=== PATIENT | male | born 1960 | race Caucasian/White ===

== ENCOUNTER 2022-06-06 16:18 | HOS | payer OTHER, SELFPAY ==
[2022-06-06 16:00] VITALS: BP 101/71; PULSE 118; RESP 22; TEMP 37.4; O2SAT 95
--- NOTE | 2022-06-06 16:06 | ADMGEN ---
This patient, Hitesh Warren, was admitted to 3 [facility] Surg Room 318-01. Patient/family oriented to hospital policies and general routines including ID bracelet, bed and alarms, visiting hours, pain management, procedures, bathroom and other care routines, personal items, smoking policy, room service/diet, and visiting hours. Information on how to activate the Rapid Response Team has been discussed. Patient/Family are encouraged to report perceived risks to care and to ask questions if they do not understand what they are told or what they should do.
[2022-06-06 16:12] VITALS: O2SAT 95
--- NOTE | 2022-06-06 16:20 | PM.IMHP ---
H&P: HPI History of Present Illness Date/Time: 06/06/22 16:20 Chief Complaint: Uncontrolled pain Narrative: This unfortunate 61-year-old gentleman was admitted to hospice due to chronic systolic congestive Heart failure in October of 2021. In the last month he has had falls decreased appetite and marked weight loss. He has developed nonhealing wounds of his hands both amputation stumps of lower extremities and presacral area. Over the last several days is been eating and drinking very little. He had increased difficulty swallowing oral medications. He has become increasingly confused restless and agitated. He complains of pain and moans almost constantly. During the 24 hours prior to admission he received a total of 1000 mg oral morphine. He is bed-bound and incontinent. Review of Systems Review of Systems: ROS unobtainable: Yes unobtainable due to medical condition PMFSH Past Medical History Medical History (Updated 06/06/22 @ 16:59 by Endy Velarde MD) CAD (coronary artery disease) of artery bypass graft Congestive heart failure COPD (chronic obstructive pulmonary disease) Essential hypertension Peripheral arterial occlusive disease Type 2 diabetes mellitus with vascular disease Surgical History Surgical History (Updated 06/06/22 @ 16:51 by Endy Velarde MD) Hx of CABG Family History Family History (Updated 06/06/22 @ 16:52 by Endy Velarde MD) Father No problems noted. Mother No problems noted. Social History Social History (Updated 06/06/22 @ 16:53 by Endy Velarde MD) Social History: Resides in his own home. Smoker. Disabled. Smoking status: Current every day smoker Alcohol intake: unknown Substance use: unknown Occupation/Education: retired [employer] Home Medications and Allergies Allergies Allergy/AdvReac Type Severity Reaction Status Date / Time citalopram [From Celexa] Allergy Unknown Verified 06/06/22 16:39 erythromycin base Allergy Unknown Verified 06/06/22 16:39 paroxetine [From Paxil] Allergy Unknown Verified 06/06/22 16:39 Vital Signs Vital Signs - 24 hr 06/06/22 16:12 Pulse Oximetry 95 Oxygen Delivery Nasal Cannula Oxygen Flow Rate 2 Exam Narrative: Cachectic elderly gentleman who appears much older than stated age, moaning intermittently. 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 for anxiety and prochlorperazine 10 mg IV q.6 hours p.r.n. for nausea (2) Congestive heart failure: Code(s): I50.9 - Heart failure, unspecified Status: Acute (3) COPD (chronic obstructive pulmonary disease): Code(s): J44.9 - Chronic obstructive pulmonary disease, unspecified Status: Acute (4) CAD (coronary artery disease) of artery bypass graft: Code(s): I25.810 - Atherosclerosis of coronary artery bypass graft(s) without angina pectoris Status: Acute (5) Hx of CABG: Code(s): Z95.1 - Presence of aortocoronary bypass graft Status: Acute (6) Essential hypertension: Code(s): I10 - Essent
[2022-06-06 17:25] VITALS: RESP 16
[2022-06-06] MEDS: HYDROmorphone HCL/PF (*CRX) 50 MG in SODIUM CHLORIDE 0.9% IV 95 ML IV CONT (17:25)
[2022-06-06] MEDS: NICOTINE (*PBKC) 14 MG PATCH 1 PATCH TRANSDERM (17:26)
[2022-06-06] MEDS: diazePAM INJ (*CRX) 10 MG/2 ML SYRINGE 5 MG IV PUSH (17:45)
[2022-06-06 20:00] VITALS: BP 123/79; PULSE 120; RESP 16; TEMP 36.7; O2SAT 97
[2022-06-07 00:30] VITALS: PULSE 135; O2SAT 100
[2022-06-07] MEDS: diazePAM INJ (*CRX) 10 MG/2 ML SYRINGE 5 MG IV PUSH ×3 (00:35→12:12)
--- NOTE | 2022-06-07 07:33 | PCWOUND ---
WOCN NOTE Received notice patient has wounds. no wound care assessment needed as patient is under hospice care
[2022-06-07 08:00] VITALS: BP 119/79; PULSE 34; RESP 12; TEMP 36.2; O2SAT 98
[2022-06-07 08:35] VITALS: O2SAT 94
[2022-06-07] MEDS: NICOTINE (*PBKC) 14 MG PATCH 1 PATCH TRANSDERM (09:35)
[2022-06-07] MEDS: PROCHLORPERAZINE EDISYLATE 10 MG/2 ML VIAL IV PUSH (11:59)
[2022-06-07 13:40] VITALS: RESP 16
[2022-06-07] MEDS: HYDROmorphone HCL/PF (*CRX) 50 MG in SODIUM CHLORIDE 0.9% IV 95 ML 6 MG IV CONT ×2 (13:40→19:49)
[2022-06-07] MEDS: KETOROLAC 30 MG/ML VIAL (*BKC) IV PUSH (14:34)
[2022-06-07] MEDS: diazePAM INJ (*CRX) 10 MG/2 ML SYRINGE (15:24)
--- NOTE | 2022-06-07 16:19 | PC.NURSE ---
stephanie nurse came to desk and asked if pt can have the prn dose of 3ml of dilaudid. this nurse checked and pt can, will go assess pt.
--- NOTE | 2022-06-07 16:20 | PM.IMPN ---
Progress Note: A&P Assessment and Plan (1) Palliative care by specialist: Code(s): Z51.5 - Encounter for palliative care Status: Acute Assessment and Plan: Meets criteria for inpatient hospice due to requiring continuous IV hydromorphone for analgesia due to pain related to multiple nonhealing wounds 06/06: Continue hydromorphone at 1.5 milligrams/hour and 3 mg every 2 hours as needed with diazepam 5 mg IV q.6 hours p.r.n. for anxiety and prochlorperazine 10 mg IV q.6 hours p.r.n. for nausea 06/07. Increased hydromorphone from 3-5 milligrams/hour. Schedule diazepam 10 mg IV every 6 hours and 10 mg IV every 3 hours p.r.n.. Continue scheduled Toradol 30 mg IV q.6 hours. (2) Congestive heart failure: Code(s): I50.9 - Heart failure, unspecified Status: Acute (3) COPD (chronic obstructive pulmonary disease): Code(s): J44.9 - Chronic obstructive pulmonary disease, unspecified Status: Acute (4) CAD (coronary artery disease) of artery bypass graft: Code(s): I25.810 - Atherosclerosis of coronary artery bypass graft(s) without angina pectoris Status: Acute (5) Hx of CABG: Code(s): Z95.1 - Presence of aortocoronary bypass graft Status: Acute (6) Essential hypertension: Code(s): I10 - Essential (primary) hypertension Status: Acute (7) Type 2 diabetes mellitus with vascular disease: Code(s): E11.59 - Type 2 diabetes mellitus with other circulatory complications Status: Acute (8) Peripheral arterial occlusive disease: Code(s): I77.9 - Disorder of arteries and arterioles, unspecified Status: Acute Subjective Date/time seen: 06/07/22 16:20 Pain earlier today, improved after increase in hydromorphone drip. Restlessness this afternoon improved after increase in diazepam. However this evening he is more restless with intermittent crying out sometimes saying ow . Review of Systems Review of Systems: ROS unobtainable: Yes unobtainable due to medical condition Exam Narrative: Cachectic elderly gentleman who appears much older than stated age, moaning intermittently. 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 Neurological cranial nerves symmetric to visual inspection Objective Data Vital Signs Vital Signs: Vital Signs - 24 hr 06/06/22 17:25 06/06/22 20:00 06/06/22 20:00 Temperature 98.0 F Pulse Rate 120 H Respiratory Rate 16 16 Blood Pressure 123/79 Pulse Oximetry 97 97 Oxygen Delivery Nasal Cannula Oxygen Flow Rate 2 06/07/22 00:30 06/07/22 08:00 06/07/22 08:35 Temperature 97.1 F L Pulse Rate 135 H 34 L Respiratory Rate 12 Blood Pressure 119/79 Pulse Oximetry 100 98 94 Oxygen Delivery Nasal Cannula Oxygen Flow Rate 2 06/07/22 13:40 Temperature Pulse Rate Respiratory Rate 16 Blood Pressure Pulse Oximetry Oxygen Delivery Oxygen Flow Rate Intake/Output Intake/Output: Intake & Output 06/04/22 06/05/22 06/06/22 06/07/22 23:59 23:59 23:59 23:59 Output Total 500 Balance -500 Meds/Results Medications: Active Medications Generic Name Dose Route Start Last Admin Trade Name Freq PRN Reason Stop Dose Admin Artificial Tears 1 drop 06/06/22 16:40 Artificial Tears Ophth Soln 15 Ml Bottle EACH EYE Q12H PRN Dry Eye(s) Bisacodyl 10 mg 06/06/22 16:40 Bisacodyl 10 Mg Suppository RECTAL DAILY PRN Constipation Diazepam 10 mg 06/07/22 15:02 Diazepam Inj (*Crx) 10 Mg/2 Ml Syringe IV PUSH Q6H PRN ANXIETY/SHORTN
[2022-06-07] MEDS: HYDROmorphone HCL INJ (*CRX) 1 MG/ML SYR 3 MG IV PUSH (16:21)
--- NOTE | 2022-06-07 16:57 | PC.NURSE ---
obtained magnet from ICU and placed taped in place over pacemaker. [employer] notified and rep to call back.
[2022-06-07] MEDS: HYDROmorphone HCL INJ (*CRX) 1 MG/ML SYR 5 MG IV PUSH (18:00)
[2022-06-07 20:00] VITALS: BP 110/65; PULSE 118; RESP 18; TEMP 36.6; O2SAT 93
[2022-06-07 20:12] VITALS: O2SAT 94
[2022-06-07] MEDS: diazePAM INJ (*CRX) 10 MG/2 ML SYRINGE IV PUSH (21:04)
[2022-06-08] MEDS: diazePAM INJ (*CRX) 10 MG/2 ML SYRINGE IV PUSH ×5 (02:29→21:15)
[2022-06-08 05:24] VITALS: PULSE 80; RESP 20; O2SAT 94
[2022-06-08] MEDS: HYDROmorphone HCL/PF (*CRX) 50 MG in SODIUM CHLORIDE 0.9% IV 95 ML 10 MG IV CONT ×2 (06:17→18:18)
[2022-06-08 08:00] VITALS: BP 102/52; PULSE 125; RESP 8; TEMP 37.9; O2SAT 95
[2022-06-08] MEDS: HYDROmorphone HCL INJ (*CRX) 1 MG/ML SYR 5 MG IV PUSH ×2 (16:45→23:32)
[2022-06-08 20:00] VITALS: BP 105/59; PULSE 87; RESP 22; TEMP 36.5; O2SAT 96
[2022-06-08] MEDS: GLYCOPYRROLATE INJ (*SP) 0.2 MG/ML VIAL 0.1 MG IV PUSH (20:09)
[2022-06-08 20:14] VITALS: O2SAT 95
--- NOTE | 2022-06-08 20:36 | PM.IMPN ---
Progress Note: A&P Assessment and Plan (1) Palliative care by specialist: Code(s): Z51.5 - Encounter for palliative care Status: Acute Assessment and Plan: Meets criteria for inpatient hospice due to requiring continuous IV hydromorphone for analgesia due to pain related to multiple nonhealing wounds 06/06: Continue hydromorphone at 1.5 milligrams/hour and 3 mg every 2 hours as needed with diazepam 5 mg IV q.6 hours p.r.n. for anxiety and prochlorperazine 10 mg IV q.6 hours p.r.n. for nausea 06/07. Increased hydromorphone from 3-5 milligrams/hour. Schedule diazepam 10 mg IV every 6 hours and 10 mg IV every 3 hours p.r.n.. Continue scheduled Toradol 30 mg IV q.6 hours. 06/08. Continue current palliative regimen. (2) Congestive heart failure: Code(s): I50.9 - Heart failure, unspecified Status: Acute (3) COPD (chronic obstructive pulmonary disease): Code(s): J44.9 - Chronic obstructive pulmonary disease, unspecified Status: Acute (4) CAD (coronary artery disease) of artery bypass graft: Code(s): I25.810 - Atherosclerosis of coronary artery bypass graft(s) without angina pectoris Status: Acute (5) Hx of CABG: Code(s): Z95.1 - Presence of aortocoronary bypass graft Status: Acute (6) Essential hypertension: Code(s): I10 - Essential (primary) hypertension Status: Acute (7) Type 2 diabetes mellitus with vascular disease: Code(s): E11.59 - Type 2 diabetes mellitus with other circulatory complications Status: Acute (8) Peripheral arterial occlusive disease: Code(s): I77.9 - Disorder of arteries and arterioles, unspecified Status: Acute Subjective Date/time seen: 06/08/22 20:36 Telemedicine visit. Remains comfortable today. Review of Systems Review of Systems: ROS unobtainable: Yes unobtainable due to medical condition Exam Narrative: Resting comfortably. Objective Data Vital Signs Vital Signs: Vital Signs - 24 hr 06/08/22 05:24 06/08/22 08:00 06/08/22 09:52 Temperature 100.2 F H Pulse Rate 80 125 H Respiratory Rate 20 8 L Blood Pressure 102/52 L Pulse Oximetry 94 95 Oxygen Delivery Nasal Cannula Nasal Cannula Oxygen Flow Rate 2 2 06/08/22 20:14 06/08/22 20:00 Temperature 97.7 F Pulse Rate 87 Respiratory Rate 22 H Blood Pressure 105/59 L Pulse Oximetry 95 96 Oxygen Delivery Nasal Cannula Oxygen Flow Rate 2 Intake/Output Intake/Output: Intake & Output 06/05/22 06/06/22 06/07/22 06/08/22 23:59 23:59 23:59 23:59 Intake Total 100 200 Output Total 500 Balance -400 200 Meds/Results Medications: Active Medications Generic Name Dose Route Start Last Admin Trade Name Freq PRN Reason Stop Dose Admin Artificial Tears 1 drop 06/06/22 16:40 Artificial Tears Ophth Soln 15 Ml Bottle EACH EYE Q12H PRN Dry Eye(s) Bisacodyl 10 mg 06/06/22 16:40 Bisacodyl 10 Mg Suppository RECTAL DAILY PRN Constipation Diazepam 10 mg 06/07/22 17:05 06/08/22 11:50 Diazepam Inj (*Crx) 10 Mg/2 Ml Syringe IV PUSH 10 mg Q3H PRN Administration ANXIETY/SHORTNESS OF BREATH Diazepam 10 mg 06/07/22 21:00 06/08/22 15:16 Diazepam Inj (*Crx) 10 Mg/2 Ml Syringe IV PUSH 10 mg Q6H BRITTANY Administration Glycopyrrolate 0.1 mg 06/06/22 16:40 06/08/22 20:09 Glycopyrrolate Inj (*Sp) 0.2 Mg/Ml Vial IV PUSH 0.1 mg Q4H PRN Administration secretions Hydromorphone HCl 5 mg 06/07/22 17:05 06/08/22 16:45 Hydromorphone Hcl Inj (*Crx) 1 Mg/Ml Syr IV PUSH 5 mg Q1H PRN Administration Pain Rated 7-10 Hydromorphone HCl 50 mg/ 100 mls @ 10 mls/hr 06/07/22 12:53 06/08/22 18:18 Sodium Chloride IV CONT 5 mg/hr .Q10H BRITTANY 10 mls/hr Administration 5 MG/HR Ketorolac Tromethamine 30 mg 06/07/22 12:55 06/07/22 14:34 Ketorolac 30 Mg/Ml Vial (*Bkc) IV PUSH 30 mg Q6H PRN Administration Pain Nicotine 1 p
[2022-06-08 23:43] VITALS: TEMP 39.4
[2022-06-09 02:00] VITALS: TEMP 41.4
[2022-06-09] MEDS: ACETAMINOPHEN 650 MG SUPPOSITORY RECTAL ×2 (02:48→09:49)
[2022-06-09] MEDS: diazePAM INJ (*CRX) 10 MG/2 ML SYRINGE IV PUSH ×2 (03:02→09:11)
[2022-06-09] MEDS: HYDROmorphone HCL/PF (*CRX) 50 MG in SODIUM CHLORIDE 0.9% IV 95 ML 10 MG IV CONT ×2 (04:48→12:50)
[2022-06-09 08:00] VITALS: BP 71/39; PULSE 59; PULSE 87; RESP 22; RESP 28; TEMP 38.2; O2SAT 80; O2SAT 95
[2022-06-09 09:49] VITALS: TEMP 38.2
[2022-06-09 10:50] VITALS: BP 70/56; PULSE 114; RESP 26; TEMP 39.1; O2SAT 83
--- NOTE | 2022-06-09 12:42 | PM.IMPN ---
Progress Note: A&P Assessment and Plan (1) Palliative care by specialist: Code(s): Z51.5 - Encounter for palliative care Status: Acute Assessment and Plan: Meets criteria for inpatient hospice due to requiring continuous IV hydromorphone for analgesia due to pain related to multiple nonhealing wounds 06/06: Continue hydromorphone at 1.5 milligrams/hour and 3 mg every 2 hours as needed with diazepam 5 mg IV q.6 hours p.r.n. for anxiety and prochlorperazine 10 mg IV q.6 hours p.r.n. for nausea 06/07. Increased hydromorphone from 3-5 milligrams/hour. Schedule diazepam 10 mg IV every 6 hours and 10 mg IV every 3 hours p.r.n.. Continue scheduled Toradol 30 mg IV q.6 hours. 06/08. Continue current palliative regimen. 06/09. Continue current regimen. (2) Congestive heart failure: Code(s): I50.9 - Heart failure, unspecified Status: Acute (3) COPD (chronic obstructive pulmonary disease): Code(s): J44.9 - Chronic obstructive pulmonary disease, unspecified Status: Acute (4) CAD (coronary artery disease) of artery bypass graft: Code(s): I25.810 - Atherosclerosis of coronary artery bypass graft(s) without angina pectoris Status: Acute (5) Hx of CABG: Code(s): Z95.1 - Presence of aortocoronary bypass graft Status: Acute (6) Essential hypertension: Code(s): I10 - Essential (primary) hypertension Status: Acute (7) Type 2 diabetes mellitus with vascular disease: Code(s): E11.59 - Type 2 diabetes mellitus with other circulatory complications Status: Acute (8) Peripheral arterial occlusive disease: Code(s): I77.9 - Disorder of arteries and arterioles, unspecified Status: Acute Subjective Date/time seen: 06/09/22 12:42 Remains comfortable. Sister at bedside. Review of Systems Review of Systems: ROS unobtainable: Yes unobtainable due to medical condition Exam Narrative: Cachectic elderly gentleman who appears much older than stated age is unresponsive to verbal and tactile stimuli. 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 Neurological cranial nerves symmetric to visual inspection Objective Data Vital Signs Vital Signs: Vital Signs - 24 hr 06/08/22 20:14 06/08/22 20:00 06/08/22 23:43 Temperature 97.7 F 103.0 F H Pulse Rate 87 Respiratory Rate 22 H Blood Pressure 105/59 L Pulse Oximetry 95 96 Oxygen Delivery Nasal Cannula Oxygen Flow Rate 2 06/09/22 02:00 06/09/22 08:00 06/09/22 08:00 Temperature 106.5 F H 100.8 F H Pulse Rate 87 59 L Respiratory Rate 22 H 28 H Blood Pressure 71/39 L Pulse Oximetry 95 80 L Oxygen Delivery Nasal Cannula Oxygen Flow Rate 2 06/09/22 09:49 06/09/22 10:50 06/09/22 12:08 Temperature 100.8 F H 102.4 F H Pulse Rate 114 H Respiratory Rate 26 H Blood Pressure 70/56 L Pulse Oximetry 83 L Oxygen Delivery Nasal Cannula Oxygen Flow Rate 2 Intake/Output Intake/Output: Intake & Output 06/06/22 06/07/22 06/08/22 06/09/22 23:59 23:59 23:59 23:59 Intake Total 100 200 100 Output Total 500 Balance -400 200 100 Meds/Results Medications: Active Medications Generic Name Dose Route Start Last Admin Trade Name Freq PRN Reason Stop Dose Admin Acetaminophen 650 mg 06/09/22 02:30 06/09/22 09:49 Acetaminophen 650 Mg Suppository RECTAL 650 mg Q6H PRN Administration Mild Pain (1-3) or Fever Artificial Tears 1 drop 06/06/22 16:40 Artificial Tears Ophth Soln 15 Ml Bottle EACH EYE Q12H PRN Dry Eye(s) Bisacodyl 10 mg 08
--- NOTE | 2022-06-09 13:23 | PC.NURSE ---
1323 time of . Verified x2 RN with charge nurse Mary Grace Hopkins.
--- NOTE | 2022-06-09 13:32 | PC.NURSE ---
called vitas to inform vitas of pt at 132
--- NOTE | 2022-06-09 19:21 | P.DN_ITS ---
Discharge Summary Date and Time Date of : 06/09/22 Time of : 13:23 Provider Pronounced By: Mary Grace Hopkins RN Bambi Aguirre RN Probable Cause of Probable Cause of : Chronic Systolic Congestive Heart Failure Summary Hospital Course: Admitted from outpatient hospice to inpatient hospice for uncontrolled pain and restlessness. Medications titrated to comfort. Mr. Warren peacefully. Additional Data Confirmation of as documented by pronouncing clinician: Pupillary Reflex, Palpable Pulses, Response to Stimuli, Heart Tones and Breath Sounds Name of Provider Notified: Dr. Velarde Time Provider Notified: 13:30 Provider Requests Autopsy: No Data Communications Analyst Notified: Yes Date [facility] Notified of : 06/09/22 Time [facility] Notified of : 13:56
== END 2022-06-09 13:23 | disposition expired | DRG 951 ==
PROVIDERS: Admitting Provider Internal Medicine; PCP Family Medicine; Visit Provider Internal Medicine
DX: Z51.5 Encounter for palliative care (principal); I50.22 Chronic systolic (congestive) heart failure; I25.810 Atherosclerosis of coronary artery bypass graft(s) without angina pectoris; R64 Cachexia; I11.0 Hypertensive heart disease with heart failure; J44.9 Chronic obstructive pulmonary disease, unspecified; E11.51 Type 2 diabetes mellitus with diabetic peripheral angiopathy without gangrene; F17.210 Nicotine dependence, cigarettes, uncomplicated; I73.9 Peripheral vascular disease, unspecified; L98.8 Other specified disorders of the skin and subcutaneous tissue; T87.89 Other complications of amputation stump; Z95.1 Presence of aortocoronary bypass graft; Z89.511 Acquired absence of right leg below knee; Z89.612 Acquired absence of left leg above knee; Z91.81 History of falling
CPT/HCPCS: A9270; J0780; J1170; J1885; J3360